=== PATIENT | male | born 1945 | race Hispanic/Latino ===

== ENCOUNTER 2017-09-19 09:50 | Inpatient (IN) | payer BC, MEDICARE ==
[2017-09-19] MEDS ORDERED: Piperacillin/Tazobactam 3.375 GM in Sodium Chloride 0.9% 100 ML IVPB SCH (10:45)
[2017-09-19 11:07] LABS: ALT (SGPT) 11 U/L (8-55); AST (SGOT) 26 U/L (5-34); Albumin 3.1 g/dL (3.4-4.8); Alkaline Phosphatase 78 U/L (40-150); Anion Gap 13 mmol/L (10-20); BUN (Urea Nitrogen) 30 mg/dL (8.4-25.7); Bilirubin, Total 0.4 mg/dL (0.2-1.2); Calc. Creatinine Clearance 0 mL/min (70-130); Calcium 8.7 mg/dL (7.8-10.44); Carbon Dioxide 17 mmol/L (23-31); Chloride 106 mmol/L (98-107); Estimated GFR-MDRD 51; Globulin 3.3 g/dL (2.4-3.5); Glucose 111 mg/dL (83-110); Potassium 4.3 mmol/L (3.5-5.1); Protein, Total 6.4 g/dL (5.8-8.1); Sodium 132 mmol/L (136-145)
[2017-09-19 11:18] LABS: Band 40 % (5-11); Hemoglobin 10.8 g/dL (14.0-18.0); Large Platelets SLIGHT; Lymphocytes 3 % (21-51); MDiff Complete? YES; Mean Corpuscular Hemoglobin 32.6 pg (27.0-31.0); Mean Platelet Volume 10.1 fL (7.4-10.4); Monocytes 6 % (0-10); Neutrophil 51 % (42-75); PLT Morphology Comment Appears Decreased; Platelet Count 114 thou/uL (130-400); RBC Distribution Width 13.8 % (11.5-14.5); White Blood Cell (WBC) Count 8.5 thou/uL (4.8-10.8)
[2017-09-19] MEDS ORDERED: Ondansetron HCl/PF 4 MG/2 ML Vial IVP PRN (12:50)
[2017-09-19] MEDS ORDERED: Acetaminophen 650 MG Suppository PR PRN (12:50)
[2017-09-19] MEDS ORDERED: Bisacodyl 5 MG TAB PO PRN (12:50)
[2017-09-19] MEDS ORDERED: cefTRIAXone\\ROCEPHIN 1 GM in Sodium Chloride 0.9% 100 ML IVPB SCH (13:00)
--- NOTE | 2017-09-19 13:54 | HP ---
PRIMARY CARE PHYSICIAN: Dr. Xu Campso. CHIEF COMPLAINT: Fever. HISTORY OF PRESENT ILLNESS: Mr. Holder is a pleasant 72-year-old gentleman, who was seen at [facility] on 03/19/2018. He mainly speaks Sudanese. His family member was xiomy sorto for this encounter. Four days ago, he developed fevers. He also had vomiting. He had dysuria and increased frequency of urination. He also had suprapubic discomfort. His vomiting resolved yesterday. He went to [facility] yesterday. He was diagnosed with urinary tract infection. He was treated with ceftr iaxone and received a prescription for Keflex. He was discharged home. He also received intravenous fluids. He reports that he was feeling better at the time of discharge. Today, he received a call from the emergency room asking him to seek medical attention because both his blood cultures were pos itive for gram negative rods. He denies any current chest pain or shortness of breath. He denies any abdominal pain. REVIEW OF SYSTEMS: The following complete review of systems was negative, unless otherwise mentioned in the HPI or below: Constitutional: Weight loss or gain, ability to conduct usual activities. Skin: Rash, itching. Eyes: Double vision, pain. ENT/Mouth: Nose bleeding, neck stiffness, pain, tenderness. Cardiovascular: Palpitations, dyspnea on exertion, orthopnea. Respiratory: Shortness of breath, whee zing, cough, hemoptysis, fever or night sweats. Gastrointestinal: Poor appetite, abdominal pain, hea rtburn, nausea, vomiting, constipation, or diarrhea. Genitourinary: Urgency, frequency, dysuria, noc turia. Musculoskeletal: Pain, swelling. Neurologic/Psychiatric: Anxiety, depression. Allergy/Immun ologic: Skin rash, bleeding tendency. PAST MEDICAL HISTORY: Significant for hypertension, benign prostatic hypertrophy, and hiccups. PAST SURGICAL HISTORY: None. FAMILY HISTORY: No family history of coronary artery disease. SOCIAL HISTORY: No history of tobacco use or recreational drug use. Patient drinks 4 or 5 alcoholic drinks on a daily basis. ALLERGIES: He has no known drug allergies. CURRENT MEDICATIONS: Include chlorpromazine 25 mg 3 times a day as needed, lisinopril 20 mg daily, t amsulosin 0.4 mg daily, amlodipine 5 mg daily, and clonazepam 1 tablet at bedtime as needed. PHYSICAL EXAMINATION: GENERAL: Mr. Holder is awake and alert, not in acute distress. VITAL SIGNS: Blood pressure is 106/71, pulse is 101, his breathing at rate of 18, and saturating 94% on room air. T-max in the emergency room was 99.2 degrees Fahrenheit. EYES: No scleral icterus. No conjunctival pallor. ENT: Dry mucosal membranes. No oropharyngeal erythema or exudates. NECK: Supple, nontender, normal range of movement, trachea is midline. RESPIRATORY: Accessory muscles of breathing are not active. Chest wall movements are symmetric bila terally. LUNGS: Clear to auscultation without wheeze, rhonchi, or crepitations. CARDIOVASCULAR: S1 and S2 are heard, tachycardic and regular. LUNGS: Peripheral pulses palpable. No carotid bruit, no pericardial rub. ABDOMEN: Soft, nontender, bowel sounds heard, no hepatomegaly, no splenomegaly. NEUROLOGIC: Cranial nerves II-XII are intact. Deep tendon reflexes are 2+. MUSCULOSKELETAL: Power is 5/5 in all 4 extremities. SKIN: No rashes or subcutaneous nodules. LYMPHATIC: No cervical lymphadenopathy. PSYCHIATRIC: Normal mood, normal affect, patient is oriented to person, place, and time. LABORATORY DATA: Mr. Holder's labs and investigations were reviewed. He has a normal white count , macrocytic anemia with hemoglobin of 10.8, thrombocytopenia with platelet count of 114,000, hyponat remia with sodium of 132, normal potassium, elevated blood urea nitrogen of 30, and elevated creatini ne of 1.38. He has decreased albumin of 3.1. Otherwise, liver profile is unremarkable. Lactic acid level is normal. Carbon dioxide level is decreased to 17. I should note that even though he has a normal white count, he has 40% bands, neutrophils. He also has 51% neutrophils. ASSESSMENT AND PLAN: Mr. Holder is a pleasant 72-year-old gentleman, who was seen at [facility] on 09/19/2017. His problem list includes: 1. Sepsis: Mr. Holder is presenting with sepsis, likely secondary to a urinary tract infection a nd bacteremia. He will be admitted to the hospital for further management, including intravenous flu id resuscitation and antibiotics. 2. Bacteremia: He reportedly has 2/2 blood cultures positive. We will request records from [facility]. We will treat him with ceftriaxone until identification and sensitivities are avail able. 3. Urinary tract infection. As mentioned above, treat with ceftriaxone. 4. Hyponatremia: Mild, we will recheck. 5. Thrombocytopenia: Duration unclear. He does have a history of daily alcohol use. We will reche ck platelet count. 5. Hypertension: Resume home medications, monitor vital signs and titrate antihypertensives as need ed. 6. Benign prostatic hypertrophy. Continue tamsulosin. 7. History of hiccups: Continue chlorpromazine as needed. 8. Dehydration: The patient is clinically dehydrated. Provide intravenous hydration. 9. Acute renal failure: Likely prerenal, given history of vomiting. Provide intravenous hydration and recheck blood urea nitrogen and creatinine. Many thanks for allowing me to participate in your patient's care. Please feel free to contact me wi th any questions or concerns. LEVEL OF RISK: Moderate. LEVEL OF COMPLEXITY: Moderate. We will obtain records from [facility], including chest x-ray report. If needed, we will repeat chest x-ray here.
[2017-09-19 14:13] LABS: Bilirubin Negative (Negative); Blood, Urine Moderate (Negative); Clarity CLOUDY (Clear); Glucose, Urine (Dipstick) Negative (Negative); Leukocyte Moderate (Negative); Nitrite Negative (Negative); Protein, Urine (Dipstick) 100 mg/dL (Neg-Trace); Specific Gravity, Urine 1.017 (1.002-1.036); pH, Urine 5.5 (5.0-9.0)
[2017-09-19 14:14] LABS: Bacteria/HPF None Seen HPF (None Seen); Hyaline Casts/LPF 0-3 HYALINE CAST LPF (0-3 Hyaline); Pathc Cast-AUWi Flag 0.54 (0-2.49); WBC/HPF 21-50 HPF (0-3)
[2017-09-19 14:17] LABS: Yeast-AUWi Flag 150.6 (0-25.0)
[2017-09-19 14:29] LABS: Oval Fat Bodies/HPF None Seen HPF (None Seen); Renal Epithelial None Seen HPF (0-3); Transitional Epithelial NONE SEEN HPF (0-3); Trichomonas/HPF None Seen HPF (None Seen); Yeast-All Forms None Seen HPF (None Seen)
[2017-09-19 14:30] LABS: Crystals/HPF None Seen HPF (Negative)
[2017-09-19] MEDS: Sodium Chloride 0.9% 1,000 ML IV SCH ×2 (15:37→22:20)
[2017-09-19] MEDS: cefTRIAXone\\ROCEPHIN 1 GM, Syringe 0.4 ML in Sterile Water 9.6 ML SLOW IVP SCH (15:37)
[2017-09-19] MEDS: Acetaminophen 325 MG TAB PO PRN ×2 (16:33→22:17)
[2017-09-19 16:47] VITALS: BMI 27.7
[2017-09-19] MEDS ORDERED: Prevnar 13-Val Conj/PF 0.5 ML SYRINGE IM ONE (21:00)
[2017-09-19] MEDS ORDERED: clonazePAM 0.5 MG TAB PO SCH (21:30)
[2017-09-20] MEDS: Lorazepam 0.5 MG TAB PO PRN ×2 (00:42→05:53)
[2017-09-20 04:39] LABS: Anion Gap 13 mmol/L (10-20); BUN (Urea Nitrogen) 22 mg/dL (8.4-25.7); Calc. Creatinine Clearance 64 mL/min (70-130); Calcium 8.6 mg/dL (7.8-10.44); Carbon Dioxide 18 mmol/L (23-31); Chloride 106 mmol/L (98-107); Estimated GFR-MDRD 63; Glucose 89 mg/dL (83-110); Potassium 3.8 mmol/L (3.5-5.1); Sodium 133 mmol/L (136-145)
[2017-09-20 05:11] LABS: Band 21 % (5-11); Eosinophils 1 % (0-10); Hemoglobin 10.7 g/dL (14.0-18.0); Lymphocytes 10 % (21-51); MDiff Complete? YES; Mean Corpuscular HGB CONC 32.3 g/dL (32.0-36.0); Mean Corpuscular Hemoglobin 31.5 pg (27.0-31.0); Mean Corpuscular Volume 97.5 fl (80.0-94.0); Mean Platelet Volume 10.2 fL (7.4-10.4); Monocytes 8 % (0-10); Neutrophil 60 % (42-75); Platelet Count 128 thou/uL (130-400); RBC Distribution Width 13.9 % (11.5-14.5); White Blood Cell (WBC) Count 5.3 thou/uL (4.8-10.8)
[2017-09-20] MEDS: Acetaminophen 325 MG TAB PO PRN ×3 (05:57→20:32)
[2017-09-20] MEDS: Folic Acid 1 MG TAB PO SCH (08:22)
[2017-09-20] MEDS: Multivit, Therapeutic 1 TAB PO SCH (08:23)
[2017-09-20] MEDS: Enoxaparin Sodium 40 MG/0.4 ML SYRINGE SC SCH (08:25)
[2017-09-20] MEDS ORDERED: Melatonin 3 MG TAB PO PRN (10:59)
[2017-09-20] MEDS: Sodium Chloride 0.9% 1,000 ML IV SCH ×2 (11:43→21:36)
[2017-09-20] MEDS: cefTRIAXone\\ROCEPHIN 1 GM, Syringe 0.4 ML in Sterile Water 9.6 ML SLOW IVP SCH (14:07)
[2017-09-20] MEDS ORDERED: Tamsulosin HCl 0.4 MG CAP PO SCH (15:45)
--- NOTE | 2017-09-20 17:00 | PDOC.PN ---
- Subjective Encounter Start Date: 09/20/17 Encounter Start Time: 08:20 Pt seen for followup re: bacteremia. Feels better. Had fevers. No chest pain. - Objective MAR Reviewed: Yes Vital Signs & Weight: Vital Signs (12 hours) Temp Pulse Resp BP BP Pulse Ox 09/20/17 15:57 98.2 F 111 H 18 131/73 96 09/20/17 11:56 99.9 F H 108 H 22 H 133/78 133/78 94 L 09/20/17 11:08 97.2 F L 109 H 22 H 134/82 93 L 09/20/17 08:00 97.8 F 113 H 16 132/81 132/81 92 L I&O: 09/19/17 09/20/17 09/21/17 06:59 06:59 06:59 Intake Total 180 Balance 180 Result Diagrams: 09/20/17 03:40 09/20/17 03:40 Phys Exam - Physical Examination Constitutional: NAD HEENT: moist MMs Neck: supple Respiratory: clear to auscultation bilateral Cardiovascular: RRR Gastrointestinal: soft Neurological: moves all 4 limbs Psychiatric: normal affect Skin: no rash Dx/Plan (1) Bacteremia Code(s): R78.81 - BACTEREMIA Status: Acute (2) UTI (urinary tract infection) Status: Acute (3) HTN (hypertension) Code(s): I10 - ESSENTIAL (PRIMARY) HYPERTENSION Status: Chronic (4) Alcohol dependence, daily use Code(s): F10.20 - ALCOHOL DEPENDENCE, UNCOMPLICATED Status: Chronic - Plan plan discussed w/ family, continue antibiotics, PT/OT, out of bed/ambulate * . Continue ceftriaxone, await culture reports. Melatonin PRN for sleep. Review of Systems - Review of Systems Constitutional: fever Respiratory: negative: Cough, Dry, Shortness of Breath, Hemoptysis, SOB with Excertion, Pleuritic Pain, Sputum, Wheezing Cardiovascular: negative: chest pain, palpitations, orthopnea, paroxysmal nocturnal dyspnea, edema, light headedness - Medications/Allergies Allergies/Adverse Reactions: Allergies Allergy/AdvReac Type Severity Reaction Status Date / Time No Known Allergies Allergy Verified 09/19/17 15:17 Medications: Current Medications Acetaminophen (Tylenol) 650 mg PO Q4H PRN PRN Reason: Headache/Fever or Pain Last Admin: 09/20/17 11:50 Dose: 650 mg Acetaminophen (Tylenol) 650 mg [place] Q4H PRN PRN Reason: Headache/Fever or Pain Amlodipine Besylate (Norvasc) 5 mg PO DAILY ON [facility] OF [facility] Bisacodyl (Dulcolax) 10 mg PO DAILYPRN PRN PRN Reason: Constipation Chlorpromazine HCl (Thorazine) 25 mg PO TID PRN PRN Reason: Hiccups Clonazepam (Klonopin) 1 mg PO HS ON [facility] OF [facility] Enoxaparin Sodium (Lovenox) 40 mg SC 0900 [facility] Last Admin: 09/20/17 08:25 Dose: 40 mg Folic Acid (Folvite) 1 mg PO DAILY [facility] Last Admin: 09/20/17 08:22 Dose: 1 mg Ceftriaxone Sodium 1 gm/ (Syringe 0.4 ml/ Sterile Water) 10 mls @ 120 mls/hr SLOW IVP Q24HR@1400 ON [facility] OF [facility] Last Admin: 09/20/17 14:07 Dose: 10 mls Sodium Chloride (Normal Saline 0.9%) 1,000 mls @ 100 mls/hr IV .Q10H ON [facility] OF [facility] Last Admin: 09/20/17 11:43 Dose: 1,000 mls Lisinopril (Zestril) 5 mg PO DAILY [facility] Melatonin (Melatonin) 3 mg PO HS PRN PRN Reason: Insomnia Multivitamins (Theragran) 1 tab PO DAILY [facility] Last Admin: 09/20/17 08:23 Dose: 1 tab Tamsulosin HCl (Flomax) 0.4 mg PO DAILY [facility] Tamsulosin HCl (Flomax) 0.4 mg PO NOW [facility] Stop: 09/20/17 17:45 Last Admin: 09/20/17 16:55 Dose: 0.4 mg Thiamine HCl (Thiamine) 100 mg PO DAILY [facility] Last Admin: 09/20/17 08:23 Dose: 100 mg
[2017-09-20] MEDS: clonazePAM 1 MG TAB PO SCH (20:31)
[2017-09-21] MEDS: Acetaminophen 325 MG TAB PO PRN ×2 (03:41→12:26)
[2017-09-21 04:44] LABS: Anion Gap 12 mmol/L (10-20); BUN (Urea Nitrogen) 18 mg/dL (8.4-25.7); Calc. Creatinine Clearance 68 mL/min (70-130); Calcium 8.9 mg/dL (7.8-10.44); Carbon Dioxide 21 mmol/L (23-31); Chloride 108 mmol/L (98-107); Estimated GFR-MDRD 67; Glucose 137 mg/dL (83-110); Potassium 3.6 mmol/L (3.5-5.1); Sodium 137 mmol/L (136-145)
[2017-09-21 05:44] LABS: Band 18 % (5-11); Hemoglobin 10.5 g/dL (14.0-18.0); Lymphocytes 24 % (21-51); MDiff Complete? YES; Mean Corpuscular HGB CONC 33.6 g/dL (32.0-36.0); Mean Corpuscular Hemoglobin 33.2 pg (27.0-31.0); Mean Corpuscular Volume 98.7 fl (80.0-94.0); Monocytes 9 % (0-10); Neutrophil 49 % (42-75); Platelet Count 147 thou/uL (130-400); RBC Distribution Width 14.3 % (11.5-14.5); Red Blood Cell (RBC) Count 3.17 mill/uL (4.70-6.10); White Blood Cell (WBC) Count 5.3 thou/uL (4.8-10.8)
[2017-09-21] MEDS: Sodium Chloride 0.9% 1,000 ML IV SCH ×2 (06:14→17:30)
[2017-09-21] MEDS: Tamsulosin HCl 0.4 MG CAP PO SCH (09:09)
[2017-09-21] MEDS: Lisinopril 5 MG TAB PO SCH (09:10)
[2017-09-21] MEDS: Amlodipine 5 MG TAB PO SCH (09:10)
[2017-09-21] MEDS: Folic Acid 1 MG TAB PO SCH (09:11)
[2017-09-21] MEDS: Multivit, Therapeutic 1 TAB PO SCH (09:11)
[2017-09-21] MEDS: Enoxaparin Sodium 40 MG/0.4 ML SYRINGE SC SCH (09:13)
[2017-09-21] MEDS: chlorproMAZINE HCl 25 MG TAB PO PRN ×2 (12:27→22:16)
--- NOTE | 2017-09-21 15:22 | PDOC.PN ---
- Subjective Encounter Start Date: 09/21/17 Encounter Start Time: 10:00 Pt seen for followup re: UTI. Feels better. Denies chest pain or shortness of breath. - Objective MAR Reviewed: Yes Vital Signs & Weight: Vital Signs (12 hours) Temp Pulse Resp BP BP Pulse Ox 09/21/17 12:00 160/87 H 09/21/17 11:25 100.2 F H 117 H 18 160/87 H 94 L 09/21/17 09:10 96 147/83 H 09/21/17 08:00 98.8 F 96 18 147/83 H 94 L 09/21/17 07:14 98.8 F 96 18 147/83 H 94 L 09/21/17 03:52 152/79 H 09/21/17 03:43 99.1 F 20 152/79 H 92 L I&O: 09/20/17 09/21/17 09/22/17 06:59 06:59 06:59 Intake Total 180 2400 360 Output Total 1800 Balance 180 600 360 Result Diagrams: 09/21/17 03:35 09/21/17 03:35 Additional Labs: Accuchecks 09/20/17 19:33 POC Glucose 118 H Phys Exam - Physical Examination Constitutional: NAD HEENT: moist MMs Neck: supple Respiratory: clear to auscultation bilateral Cardiovascular: RRR Gastrointestinal: soft Neurological: moves all 4 limbs Psychiatric: normal affect Skin: no rash Dx/Plan (1) Bacteremia Code(s): R78.81 - BACTEREMIA Status: Acute (2) UTI (urinary tract infection) Status: Acute (3) HTN (hypertension) Code(s): I10 - ESSENTIAL (PRIMARY) HYPERTENSION Status: Chronic (4) Alcohol dependence, daily use Code(s): F10.20 - ALCOHOL DEPENDENCE, UNCOMPLICATED Status: Chronic - Plan * . Change antibiotic to oral levofloxacin. If continues to do well, likely home 24-48h. Review of Systems - Review of Systems Constitutional: negative: fever, chills, sweats, weakness, malaise Cardiovascular: negative: chest pain, palpitations, orthopnea, paroxysmal nocturnal dyspnea, edema, light headedness Gastrointestinal: negative: Nausea, Vomiting, Abdominal Pain, Diarrhea, Constipation, Melena, Hematochezia Genitourinary: negative: Dysuria, Frequency, Incontinence, Hematuria, Retention - Medications/Allergies Allergies/Adverse Reactions: Allergies Allergy/AdvReac Type Severity Reaction Status Date / Time No Known Allergies Allergy Verified 09/19/17 15:17 Medications: Current Medications Acetaminophen (Tylenol) 650 mg PO Q4H PRN PRN Reason: Headache/Fever or Pain Last Admin: 09/21/17 12:26 Dose: 650 mg Acetaminophen (Tylenol) 650 mg [place] Q4H PRN PRN Reason: Headache/Fever or Pain Amlodipine Besylate (Norvasc) 5 mg PO DAILY [facility] Last Admin: 09/21/17 09:10 Dose: 5 mg Bisacodyl (Dulcolax) 10 mg PO DAILYPRN PRN PRN Reason: Constipation Chlorpromazine HCl (Thorazine) 25 mg PO TID PRN PRN Reason: Hiccups Last Admin: 09/21/17 12:27 Dose: 25 mg Clonazepam (Klonopin) 1 mg PO HS [facility] Last Admin: 09/20/17 20:31 Dose: 1 mg Enoxaparin Sodium (Lovenox) 40 mg SC 0900 [facility] Last Admin: 09/21/17 09:13 Dose: 40 mg Folic Acid (Folvite) 1 mg PO DAILY [facility] Last Admin: 09/21/17 09:11 Dose: 1 mg Sodium Chloride (Normal Saline 0.9%) 1,000 mls @ 100 mls/hr IV .Q10H [facility] Last Admin: 09/21/17 06:14 Dose: 1,000 mls Levofloxacin (Levaquin) 250 mg PO 0600 [facility] Lisinopril (Zestril) 5 mg PO DAILY [facility] Last Admin: 09/21/17 09:10 Dose: 5 mg Melatonin (Melatonin) 3 mg PO HS PRN PRN Reason: Insomnia Last Admin: 09/20/17 20:35 Dose: 3 mg Multivitamins (Theragran) 1 tab PO DAILY [facility] Last Admin: 09/21/17 09:11 Dose: 1 tab Tamsulosin HCl (Flomax) 0.4 mg PO DAILY [facility] Last Admin: 09/21/17 09:09 Dose: 0.4 mg Thiamine HCl (Thiamine) 100 mg PO DAILY [facility] Last Admin: 09/21/17 09:10 Dose: 100 mg
--- NOTE | 2017-09-21 20:22 | EKG ---
Test Reason : Blood Pressure : / mmHG Vent. Rate : 137 BPM Atrial Rate : 137 BPM P-R Int : 132 ms QRS Dur : 084 ms QT Int : 288 ms P-R-T Axes : 057 030 028 degrees QTc Int : 434 ms Sinus tachycardia Otherwise normal ECG When compared with ECG of 07-MAR-2014 21:16, No significant change was found Confirmed by DR. Pearl TILLMAN MD ([id number]) on 09/21/2017 8:21:54 PM Referred By: LORE Confirmed By:DR. Pearl TILLMAN MD
[2017-09-21] MEDS: clonazePAM 1 MG TAB PO SCH (22:16)
[2017-09-22] MEDS: Sodium Chloride 0.9% 1,000 ML IV SCH ×3 (01:00→22:30)
[2017-09-22 05:10] LABS: Anion Gap 12 mmol/L (10-20); BUN (Urea Nitrogen) 13 mg/dL (8.4-25.7); Calc. Creatinine Clearance 78 mL/min (70-130); Calcium 9.1 mg/dL (7.8-10.44); Carbon Dioxide 20 mmol/L (23-31); Chloride 107 mmol/L (98-107); Estimated GFR-MDRD 78; Glucose 98 mg/dL (83-110); Potassium 3.3 mmol/L (3.5-5.1); Sodium 136 mmol/L (136-145)
[2017-09-22 05:30] LABS: Band 3 % (5-11); Hemoglobin 10.4 g/dL (14.0-18.0); Lymphocytes 17 % (21-51); MDiff Complete? YES; Mean Corpuscular HGB CONC 33.4 g/dL (32.0-36.0); Mean Corpuscular Hemoglobin 32.5 pg (27.0-31.0); Mean Corpuscular Volume 97.5 fl (80.0-94.0); Mean Platelet Volume 9.8 fL (7.4-10.4); Monocytes 20 % (0-10); Neutrophil 60 % (42-75); Platelet Count 150 thou/uL (130-400); RBC Distribution Width 14.6 % (11.5-14.5); Red Blood Cell (RBC) Count 3.19 mill/uL (4.70-6.10); White Blood Cell (WBC) Count 6.6 thou/uL (4.8-10.8)
[2017-09-22] MEDS: Acetaminophen 325 MG TAB PO PRN ×2 (06:07→17:15)
[2017-09-22] MEDS: Folic Acid 1 MG TAB PO SCH (08:42)
[2017-09-22] MEDS: Amlodipine 5 MG TAB PO SCH (08:42)
[2017-09-22] MEDS: Tamsulosin HCl 0.4 MG CAP PO SCH (08:42)
[2017-09-22] MEDS: Multivit, Therapeutic 1 TAB PO SCH (08:42)
[2017-09-22] MEDS: Lisinopril 5 MG TAB PO SCH (08:42)
[2017-09-22] MEDS: Enoxaparin Sodium 40 MG/0.4 ML SYRINGE SC SCH (08:43)
[2017-09-22] MEDS ORDERED: cefTRIAXone\\ROCEPHIN 1 GM in Sodium Chloride 0.9% 100 ML IVPB SCH (09:30)
[2017-09-22] MEDS ORDERED: cefTRIAXone\\ROCEPHIN 1 GM, Syringe 0.4 ML in Sterile Water 9.6 ML SLOW IVP SCH (10:00)
--- NOTE | 2017-09-22 14:04 | PQF ---
DATE: 09-22-17 ATTN: DR. ANUP TORREZ Please exercise your independent, professional judgment in responding to the clarification form. Clinical indicators are provided on the bottom of this form for your review Please check appropriate box(s) to clarify if the following diagnosis has been ruled in our ruled out: SEPSIS (CDI/Coding list diagnosis here) [ X ] Ruled in diagnosis [ ] Continue to treat [ ] Resolved [ ] Ruled out diagnosis [ ] Other diagnosis [ ] Unable to determine In addition, please specify: Present on Admission (POA): [ X ] Yes [ ] No [ ] Unable to determine For continuity of documentation, please document condition throughout progress notes and discharge summary. Thank You. CLINICAL INDICATORS - SIGNS / SYMPTOMS / LABS H&P: SEPSIS. MR MARES IS PRESENTING WITH SEPSIS, LIKELY SECONDARY TO UTI AND BACTEREMIA PN 09-21-17: BACTEREMIA, UTI ER DOCUMENTATION: PT'S FAMILY REPORTS FEVER OF 104.9 YESTERDAY, SENT HERE DUE TO POSITIVE BLOOD CULTURES BANDS: 09-19-17: 40 1-18: 21 1: 18 VITALS: 09-19-17: 100.4 09-20-17: 99.9, 09-21-17: 100.2, 102.5 09-22-17: 100.1 RISK FACTORS: ER DOCUMENTATION: PT'S FAMILY REPORTS FEVER OF 104.9 YESTERDAY , SENT HERE DUE TO POSITIVE BLOOD CULTURES H&P: SEPSIS. MR MARES IS PRESENTING WITH SEPSIS, LIKELY SECONDARY TO UTI AND BACTEREMIA TREATMENTS: ER: (MAR) ZOSYN, LEVAQUIN (MAR) IVF (MAR) ROCEPHIN (This form is maintained as a part of the permanent medical record) 2014 [employer] All Rights Reserved DAYANA [email or web address] Office: [phone] [facility] CENTERGiacomo
[2017-09-22] MEDS: chlorproMAZINE HCl 25 MG TAB PO PRN ×2 (17:12→22:28)
--- NOTE | 2017-09-22 17:19 | PDOC.PN ---
- Subjective Encounter Start Date: 09/22/17 Encounter Start Time: 08:40 Pt seen for followup re; sepsis. Had fevers yesterday and today. No nausea or vomiting. - Objective MAR Reviewed: Yes Vital Signs & Weight: Vital Signs (12 hours) Temp Pulse Resp BP BP BP Pulse Ox 09/22/17 17:13 99.1 F 102 H 16 128/76 95 09/22/17 12:00 129/73 09/22/17 11:07 97.2 F L 92 16 92 L 09/22/17 08:47 98.9 F 84 16 92 L 09/22/17 08:42 84 128/72 09/22/17 08:39 128/72 09/22/17 07:59 98.9 F 84 16 128/72 92 L I&O: 09/21/17 09/22/17 09/23/17 06:59 06:59 06:59 Intake Total 2400 540 Output Total 1800 125 Balance 600 415 Result Diagrams: 09/22/17 03:42 09/22/17 03:42 Phys Exam - Physical Examination Constitutional: NAD HEENT: moist MMs Neck: supple Respiratory: clear to auscultation bilateral Cardiovascular: RRR Gastrointestinal: soft Musculoskeletal: pulses present Neurological: moves all 4 limbs Psychiatric: normal affect Skin: no rash Dx/Plan (1) Sepsis Code(s): A41.9 - SEPSIS, UNSPECIFIED ORGANISM Status: Acute (2) Bacteremia Code(s): R78.81 - BACTEREMIA Status: Acute (3) UTI (urinary tract infection) Status: Acute (4) HTN (hypertension) Code(s): I10 - ESSENTIAL (PRIMARY) HYPERTENSION Status: Chronic (5) Alcohol dependence, daily use Code(s): F10.20 - ALCOHOL DEPENDENCE, UNCOMPLICATED Status: Chronic - Plan plan discussed w/ family, continue antibiotics, out of bed/ambulate * . Pt continues to spike fevers on levofloxacin, had fevers on ceftriaxone as well , will start pt on meropenem and await final blood cultures in case he's growing ESBL organisms. Blood cultures from [place] does not reflect this. Will request updated culture reports from [facility]. Urine cultures here negative (pt already received to antibiotics before the sample was sent). Review of Systems - Review of Systems Constitutional: fever, sweats. negative: chills, weakness, malaise Respiratory: negative: Cough, Dry, Shortness of Breath, Hemoptysis, SOB with Excertion, Pleuritic Pain, Sputum, Wheezing Genitourinary: negative: Dysuria, Frequency, Incontinence, Hematuria, Retention - Medications/Allergies Allergies/Adverse Reactions: Allergies Allergy/AdvReac Type Severity Reaction Status Date / Time No Known Allergies Allergy Verified 09/19/17 15:17 Medications: Current Medications Acetaminophen (Tylenol) 650 mg PO Q4H PRN PRN Reason: Headache/Fever or Pain Last Admin: 09/22/17 17:15 Dose: 650 mg Acetaminophen (Tylenol) 650 mg [place] Q4H PRN PRN Reason: Headache/Fever or Pain Last Admin: 09/21/17 19:33 Dose: 650 mg Amlodipine Besylate (Norvasc) 5 mg PO DAILY [facility] Last Admin: 09/22/17 08:42 Dose: 5 mg Bisacodyl (Dulcolax) 10 mg PO DAILYPRN PRN PRN Reason: Constipation Chlorpromazine HCl (Thorazine) 25 mg PO TID PRN PRN Reason: Hiccups Last Admin: 09/22/17 17:12 Dose: 25 mg Clonazepam (Klonopin) 1 mg PO HS [facility] Last Admin: 09/21/17 22:16 Dose: 1 mg Enoxaparin Sodium (Lovenox) 40 mg SC 0900 [facility] Last Admin: 09/22/17 08:43 Dose: 40 mg Folic Acid (Folvite) 1 mg PO DAILY [facility] Last Admin: 09/22/17 08:42 Dose: 1 mg Sodium Chloride (Normal Saline 0.9%) 1,000 mls @ 100 mls/hr IV .Q10H [facility] Last Admin: 09/22/17 15:07 Dose: 1,000 mls Ceftriaxone Sodium 1 gm/ (Syringe 0.4 ml/ Sterile Water) 10 mls @ 120 mls/hr SLOW IVP 1000 [facility] Last Admin: 09/22/17 10:09 Dose: 10 mls Lisinopril (Zestril) 5 mg PO DAILY [facility] Last Admin: 09/22/17 08:42 Dose: 5 mg Melatonin (Melatonin) 3 mg PO HS PRN PRN Reason: Insomnia Last Admin: 09/20/17 20:35 Dose: 3 mg Multivitamins (Theragran) 1 tab PO DAILY [facility] Last Admin: 09/22/17 08:42 Dose: 1 tab Tamsulosin HCl (Flomax) 0.4 mg PO DAILY [facility] Last Admin: 09/22/17 08:42 Dose: 0.4 mg Thiamine HCl (Thiamine) 100 mg PO DAILY [facility] Last Admin: 09/22/17 08:42 Dose: 100 mg
[2017-09-22] MEDS: Meropenem 1 GM in Sterile Water 20 ML SLOW IVP SCH (18:31)
[2017-09-22] MEDS: clonazePAM 1 MG TAB PO SCH (21:58)
[2017-09-22] MEDS ORDERED: Meropenem 1 GM in Sodium Chloride 0.9% 100 ML IVPB SCH (22:00)
[2017-09-23] MEDS: Meropenem 1 GM in Sterile Water 20 ML SLOW IVP SCH ×2 (01:29→09:07)
[2017-09-23] MEDS: Tamsulosin HCl 0.4 MG CAP PO SCH (08:36)
[2017-09-23] MEDS: Multivit, Therapeutic 1 TAB PO SCH (08:36)
[2017-09-23] MEDS: Folic Acid 1 MG TAB PO SCH (08:36)
[2017-09-23] MEDS: Lisinopril 5 MG TAB PO SCH (08:37)
[2017-09-23] MEDS: Amlodipine 5 MG TAB PO SCH (08:37)
[2017-09-23] MEDS: Enoxaparin Sodium 40 MG/0.4 ML SYRINGE SC SCH (08:38)
[2017-09-23] MEDS ORDERED: Cefdinir 300 MG CAP PO SCH (11:15)
[2017-09-23] MEDS: chlorproMAZINE HCl 25 MG TAB PO PRN (11:56)
[2017-09-23] MEDS: Sodium Chloride 0.9% 1,000 ML IV SCH ×2 (11:57→22:05)
--- NOTE | 2017-09-23 12:59 | PDOC.PN ---
- Subjective Encounter Start Date: 09/23/17 Encounter Start Time: 08:40 Pt seen for followup re: bacteremia. Feels well, no complaints. - Objective MAR Reviewed: Yes Vital Signs & Weight: Vital Signs (12 hours) Temp Pulse Resp BP BP BP Pulse Ox 09/23/17 12:00 99.0 F 152/82 H 09/23/17 08:37 91 155/80 H 09/23/17 08:00 98.9 F 91 16 155/80 H 92 L 09/23/17 07:40 98.6 F 89 18 09/23/17 06:34 98.6 F 89 18 156/77 H 91 L I&O: 09/22/17 09/23/17 09/24/17 06:59 06:59 06:59 Intake Total 540 1820 Output Total 125 Balance 415 1820 Result Diagrams: 09/22/17 03:42 09/22/17 03:42 Phys Exam - Physical Examination Constitutional: NAD HEENT: moist MMs Neck: supple Respiratory: clear to auscultation bilateral Cardiovascular: RRR Gastrointestinal: soft Neurological: moves all 4 limbs Psychiatric: normal affect Skin: no rash Dx/Plan (1) Bacteremia Code(s): R78.81 - BACTEREMIA Status: Acute (2) UTI (urinary tract infection) Status: Acute (3) HTN (hypertension) Code(s): I10 - ESSENTIAL (PRIMARY) HYPERTENSION Status: Chronic (4) Alcohol dependence, daily use Code(s): F10.20 - ALCOHOL DEPENDENCE, UNCOMPLICATED Status: Chronic (5) Sepsis Code(s): A41.9 - SEPSIS, UNSPECIFIED ORGANISM Status: Resolved - Plan plan discussed w/ family, continue antibiotics, PT/OT, out of bed/ambulate * . Pt has been afebrile overnight. Will discontinue meropenem and start cefdinir ( avoiding fluoroquinolones since pt is on other medications which can prolong QT interval). Reviewed new records sent from [facility]. Likely home 24-48 hrs if not febrile. Review of Systems - Review of Systems Constitutional: negative: fever, chills, sweats, weakness, malaise Respiratory: negative: Cough, Dry, Shortness of Breath, Hemoptysis, SOB with Excertion, Pleuritic Pain, Sputum, Wheezing Cardiovascular: negative: chest pain, palpitations, orthopnea, paroxysmal nocturnal dyspnea, edema, light headedness - Medications/Allergies Allergies/Adverse Reactions: Allergies Allergy/AdvReac Type Severity Reaction Status Date / Time No Known Allergies Allergy Verified 09/19/17 15:17 Medications: Current Medications Acetaminophen (Tylenol) 650 mg PO Q4H PRN PRN Reason: Headache/Fever or Pain Last Admin: 09/22/17 17:15 Dose: 650 mg Acetaminophen (Tylenol) 650 mg [place] Q4H PRN PRN Reason: Headache/Fever or Pain Last Admin: 09/21/17 19:33 Dose: 650 mg Amlodipine Besylate (Norvasc) 5 mg PO DAILY [facility] Last Admin: 09/23/17 08:37 Dose: 5 mg Bisacodyl (Dulcolax) 10 mg PO DAILYPRN PRN PRN Reason: Constipation Cefdinir (Omnicef) 300 mg PO BID [facility] Cefdinir (Omnicef) 300 mg PO NOW [facility] Stop: 09/23/17 13:15 Last Admin: 09/23/17 12:04 Dose: 300 mg Chlorpromazine HCl (Thorazine) 25 mg PO TID PRN PRN Reason: Hiccups Last Admin: 09/23/17 11:56 Dose: 25 mg Clonazepam (Klonopin) 1 mg PO HS [facility] Last Admin: 09/22/17 21:58 Dose: 1 mg Enoxaparin Sodium (Lovenox) 40 mg SC 0900 [facility] Last Admin: 09/23/17 08:38 Dose: 40 mg Folic Acid (Folvite) 1 mg PO DAILY [facility] Last Admin: 09/23/17 08:36 Dose: 1 mg Sodium Chloride (Normal Saline 0.9%) 1,000 mls @ 100 mls/hr IV .Q10H [facility] Last Admin: 09/23/17 11:57 Dose: 1,000 mls Lisinopril (Zestril) 5 mg PO DAILY [facility] Last Admin: 09/23/17 08:37 Dose: 5 mg Melatonin (Melatonin) 3 mg PO HS PRN PRN Reason: Insomnia Last Admin: 09/20/17 20:35 Dose: 3 mg Multivitamins (Theragran) 1 tab PO DAILY [facility] Last Admin: 09/23/17 08:36 Dose: 1 tab Tamsulosin HCl (Flomax) 0.4 mg PO DAILY [facility] Last Admin: 09/23/17 08:36 Dose: 0.4 mg Thiamine HCl (Thiamine) 100 mg PO DAILY [facility] Last Admin: 09/23/17 08:36 Dose: 100 mg
[2017-09-23] MEDS: clonazePAM 1 MG TAB PO SCH (20:36)
[2017-09-23] MEDS: Cefdinir 300 MG CAP PO SCH (20:36)
[2017-09-24] MEDS: Sodium Chloride 0.9% 1,000 ML IV SCH ×2 (07:40→08:46)
[2017-09-24] MEDS: Cefdinir 300 MG CAP PO SCH (07:55)
[2017-09-24] MEDS: Multivit, Therapeutic 1 TAB PO SCH (07:55)
[2017-09-24] MEDS: Tamsulosin HCl 0.4 MG CAP PO SCH (07:55)
[2017-09-24] MEDS: Amlodipine 5 MG TAB PO SCH (07:57)
[2017-09-24] MEDS: Enoxaparin Sodium 40 MG/0.4 ML SYRINGE SC SCH (07:58)
[2017-09-24] MEDS: Lisinopril 5 MG TAB PO SCH (07:58)
[2017-09-24] MEDS: Folic Acid 1 MG TAB PO SCH (08:46)
--- NOTE | 2017-09-24 10:28 | PDOC.PN ---
- Subjective Encounter Start Date: 09/24/17 Encounter Start Time: 11:30 Subjective: Patient without complaints. No pain. No SOB. Cough improved. -: Off oxygen. - Objective MAR Reviewed: Yes Vital Signs & Weight: Vital Signs (12 hours) Temp Pulse Resp BP BP BP Pulse Ox 09/24/17 08:00 97.2 F L 99 18 164/83 H 95 09/24/17 07:58 99 164/83 H 09/24/17 07:57 99 164/83 H 09/24/17 06:00 98.4 F 89 18 156/80 H 156/80 H 92 L 09/24/17 04:00 98.4 F 89 18 156/80 H 92 L 09/24/17 02:00 147/78 H 09/24/17 00:00 98.4 F 87 20 147/78 H 92 L I&O: 09/23/17 09/24/17 09/25/17 06:59 06:59 06:59 Intake Total 1820 3268 Output Total 1330 Balance 1820 1938 Result Diagrams: 09/22/17 03:42 09/22/17 03:42 Phys Exam - Physical Examination Constitutional: NAD HEENT: moist MMs Respiratory: no wheezing, no rales, no rhonchi, clear to auscultation bilateral Cardiovascular: RRR, no significant murmur Gastrointestinal: soft, positive bowel sounds Musculoskeletal: no edema Neurological: non-focal, moves all 4 limbs Psychiatric: normal affect Dx/Plan (1) Bacteremia Code(s): R78.81 - BACTEREMIA Status: Acute Comment: Transitioned to oral abx without fever (2) UTI (urinary tract infection) Status: Acute (3) Alcohol dependence, daily use Code(s): F10.20 - ALCOHOL DEPENDENCE, UNCOMPLICATED Status: Chronic (4) HTN (hypertension) Code(s): I10 - ESSENTIAL (PRIMARY) HYPERTENSION Status: Chronic (5) Septicemia Code(s): A41.9 - SEPSIS, UNSPECIFIED ORGANISM Status: Resolved - Plan cont current plan of care, continue antibiotics discharge home * . - Discharge Day Encounter end time: 11:50
[2017-09-24] MEDS ORDERED: Potassium Chloride 20 MEQ TAB PO SCH (12:15)
[2017-09-24 13:10] VITALS: BP 139/75; TEMP 97.8
--- NOTE | 2017-09-24 14:20 | DIS ---
PRIMARY CARE PHYSICIAN: Xu Campos M.D. ADMISSION DIAGNOSES: 1. Sepsis. 2. Bacteremia. 3. Urinary tract infection. 4. Hyponatremia. 5. Thrombocytopenia. 6. Hypertension. 7. Benign prostatic hyperplasia. DISCHARGE DIAGNOSES: 1. Bacteremia, resolved. 2. E. coli sensitive to cephalosporins. 3. Septicemia, resolved. 4. Urinary tract infection. 5. Alcohol dependence. 6. Hypertension. PROCEDURES: None. CONSULTATIONS: None. LABORATORY DATA: Blood cultures done at [place] emergency room showed 2/2 bottles growing E. coli br oadly sensitive including to cephalosporins. Hemoglobin stable at 10.4 in our hospital, he did have a drop in his potassium to 3.3 which was replaced orally. SUMMARY OF HOSPITAL COURSE: This is a 72-year-old male, [place]ian speaking only. He presente d with a 4-day history of fevers, also had vomiting, dysuria, increased urinary frequency and suprapu bic discomfort. He went to [place] emergency room and was found to have a urinary tract infection an d was treated with ceftriaxone and a prescription for Keflex. He was discharged home. He also recei ho IV fluid there. He was feeling better on discharge, but then the next day received a call from [facility] emergency room saying that he had gram negative rods running in his blood cultures and he needs to go to the hospital. Patient was admitted to our hospital and was put on Cipro and Rocephin IV. He did continued spiking fevers, but had a normal white blood cell count. Eventually, the antibiotics w ere switched to meropenem due to persistent fevers; however, then we got the culture results back for the E. coli, which was sensitive to the cephalosporins and so he was switched back to oral cephalosp laura. He had had no fever for 24 hours at that point. On the oral antibiotics, the patient is tyler nued to improve. He is drinking good fluids with good urine output and no symptoms. He is ambulatin g well and has had no fever now for 48 hours and is being discharged home. DISCHARGE MANAGEMENT: Discharged home. Follow up with Dr. Campos in 7 days. ACTIVITY: As tolerated. DIET: Healthy heart, low sodium diet. He is to avoid alcohol. MEDICATIONS: 1. Cefdinir 300 mg twice a day for another 9 days for a total of 14 days of antibiotics. 2. Folic acid 1 mg daily, 30 tablets. 3. Multivitamin 1 tablet daily, 30 tablets dispensed.
== END 2017-09-24 13:15 | disposition home or self-care (01) | DRG 872 ==
LOC: ERS 09:50 → T4-A 15:09
PROVIDERS: ADMIT Internal Medicine; ATTEND Internal Medicine
DX: A41.51 Sepsis due to Escherichia coli [E. coli] (principal); N17.9 Acute kidney failure, unspecified; D69.6 Thrombocytopenia, unspecified; N39.0 Urinary tract infection, site not specified; E87.1 Hypo-osmolality and hyponatremia; I10 Essential (primary) hypertension; N40.0 Benign prostatic hyperplasia without lower urinary tract symptoms; F10.20 Alcohol dependence, uncomplicated; R35.0 Frequency of micturition
CPT/HCPCS: 36415; 36416; 80048; 80053; 81003; 81015; 83605; 85025; 87040; 87086; 93005; 93010; 96365; 96366; 96367; A4216; J0696; J1650; J1956; J2185; J2405; J2543; J7050; Q0161

== ENCOUNTER 2019-03-12 19:25 | Emergency (ER) | payer BC, MEDICARE ==
[~2019-03-12 19:25] MED LIST: Iopamidol 370 76% 100 ML VIAL ONE
[2019-03-12 19:57] LABS: #Basophils 0.1 thou/uL (0.0-0.2); #Eosinphils 0.2 thou/uL (0.0-0.7); #Lymphocytes 1.9 thou/uL (1.20-3.40); #Neutrophils 7.7 thou/uL (1.40-6.50); %Basophils 0.7 % (0.0-1.0); %Lymphocytes 17.5 % (21.0-51.0); %Monocytes 9.2 % (0.0-10.0); %Neutrophils 70.8 % (42.0-75.0); Hemoglobin 12.5 g/dL (14.0-18.0); Mean Corpuscular Hemoglobin 30.8 pg (27.0-31.0); Mean Corpuscular Volume 93.3 fL (78.0-98.0); Mean Platelet Volume 9.5 fL (7.4-10.4); Platelet Count 208 thou/uL (130-400); RBC Distribution Width 13.8 % (11.5-14.5); Red Blood Cell (RBC) Count 4.06 mill/uL (4.70-6.10); White Blood Cell (WBC) Count 10.9 thou/uL (4.8-10.8)
--- NOTE | 2019-03-12 20:11 | RAD ---
Exam: Chest one view HISTORY:Stroke Comparison: 03/07/2014 FINDINGS: Lungs: No masses or consolidation. Cardiac silhouette:Prominent in size Pulmonary vessels: Mild prominence, centrally Pleural Spaces: Clear Pneumothorax: None Osseous abnormalities: None of acuity. IMPRESSION: No focal consolidation.
[2019-03-12 20:21] LABS: ALT (SGPT) 11 U/L (8-55); AST (SGOT) 18 U/L (5-34); Albumin 4.3 g/dL (3.4-4.8); Alkaline Phosphatase 87 U/L (40-150); Anion Gap 14 mmol/L (10-20); BUN (Urea Nitrogen) 18 mg/dL (8.4-25.7); Bilirubin, Total 0.3 mg/dL (0.2-1.2); Calc. Creatinine Clearance 0 mL/min (70-130); Calcium 10.7 mg/dL (7.8-10.44); Carbon Dioxide 25 mmol/L (23-31); Chloride 102 mmol/L (98-107); Estimated GFR-MDRD 58; Globulin 4.2 g/dL (2.4-3.5); Glucose 121 mg/dL (83-110); Potassium 3.6 mmol/L (3.5-5.1); Protein, Total 8.5 g/dL (5.8-8.1); Sodium 137 mmol/L (136-145)
[2019-03-12] MEDS ORDERED: Morphine 2 MG/ML SYRINGE ONE (22:25)
--- NOTE | 2019-03-12 23:11 | CT ---
CTA of the neck with IV contrast and 3-D reformatted imaging 3 D Volume Rendering: DATE: 03/12/2019 8:56 PM HISTORY: Stroke COMPARISON: None FINDINGS: Right: CCA:No significant stenosis. ICA:Mild stenosis at the right carotid bulb due to predominantly noncalcified plaque LEFT: CCA:No significant stenosis. ICA:No significant stenosis. Vertebrobasilar System: Left Vertebral:No significant stenosis. Right Vertebral:No significant stenosis. Basilar:No significant stenosis of the visualized aspects. Incidental note of impacted right maxillary molar at the posterior base of the maxillary sinus. IMPRESSION: No hemodynamically significant stenosis, occlusion or aneurysmal dilation. Scattered atherosclerotic plaque is present.
== END 2019-03-13 00:25 | disposition home or self-care (01) ==
LOC: ERS 19:25
DX: E86.0 Dehydration (principal); M54.2 Cervicalgia; R00.0 Tachycardia, unspecified; I10 Essential (primary) hypertension; E78.00 Pure hypercholesterolemia, unspecified; F41.9 Anxiety disorder, unspecified; Z79.899 Other long term (current) drug therapy
CPT/HCPCS: 70498; 71045; 80053; 84484; 85025; 93005; 96361; 96374; J2270; Q9967

== ENCOUNTER 2019-03-29 08:57 | Outpatient (CLI) | payer BC, MEDICARE ==
--- NOTE | 2019-03-30 09:37 | NM ---
RADIOIODINE THYROID UPTAKE AND SCAN: HISTORY: Thyrotoxicosis, unspecified without thyrotoxic crisis or storm RADIOPHARMACEUTICAL: 250 uCi I-123 administered orally FINDINGS: Planar anterior and both anterior oblique images of the thyroid gland were obtained. There is homogeneous tracer distribution to both lobes of the thyroid gland without focal cold or hot nodules. The 24-hour uptake measures 7.4% (normal 10-30%). IMPRESSION: Decreased 24 hour radioiodine uptake.
== END 2019-03-29 08:58 | disposition home or self-care (01) ==
LOC: NM 08:57
PROVIDERS: ATTEND Internal Medicine
DX: E05.90 Thyrotoxicosis, unspecified without thyrotoxic crisis or storm (principal)
CPT/HCPCS: 78014; A9516

== ENCOUNTER 2019-05-17 11:42 | Outpatient (CLI) | payer BC, MEDICARE ==
--- NOTE | 2019-05-17 12:24 | RAD ---
XR Shoulder Lt 3 View STANDARD HISTORY: Left shoulder pain FINDINGS: No fracture or dislocation is identified. There are degenerative changes in the acromial clavicular j oint.
== END 2019-05-17 11:43 | disposition home or self-care (01) ==
LOC: RAD 11:42
PROVIDERS: ATTEND Family Medicine
DX: M25.512 Pain in left shoulder (principal)